=== PATIENT | male | born 1935 | race Caucasian/White ===

== ENCOUNTER 2019-05-28 05:26 | Inpatient (IN) ==
[2019-05-28] MEDS ORDERED: Isovue-370 500 ML BOTTLE IVP ONE (06:03)
[2019-05-28 06:05] LABS: Hematocrit 47.9 % (37.5-50.1); Hemoglobin 16.9 g/dL (12.9-16.9); Mean Corpuscular HGB Conc 35.3 g/dL (31.6-35.5); Mean Corpuscular Hemoglobin 31.6 pg (28.0-33.3); Mean Corpuscular Volume 89.5 fL (83.0-100.0); Mean Platelet Volume 12.6 fL (9.4-12.4); Platelet Count 159 K/mcL (140-400); Red Blood Count 5.35 M/mcL (4.19-5.50); Red Cell Distribution Width 13.6 % (11.5-14.5)
[2019-05-28 06:10] LABS: INR 2.9; Prothrombin Time 33.2 Seconds (9.4-12.1)
[2019-05-28 06:13] LABS: Activated Partial Thrombo Time 42.9 Seconds (26.0-36.0)
[2019-05-28] MEDS ORDERED: niCARdipine 20 MG/200 ML MLS IVC SCH (06:30)
[2019-05-28] MEDS ORDERED: niCARdipine 20 MG in 0.9 % Sodium Chloride 192 ML IVC SCH (06:30)
[2019-05-28] MEDS ORDERED: niCARdipine 20 MG/200 ML MLS IVC ONE (07:17)
[2019-05-28] MEDS ORDERED: Ondansetron 4 MG/2 ML VIAL IVP PRN (08:08)
[2019-05-28] MEDS ORDERED: Naloxone 0.4 MG/ML INJ IVP PRN (08:08)
[2019-05-28] MEDS ORDERED: Dextrose Gel 15 GM/37.5 ML TUBE PO PRN ×3 (08:14→19:45)
[2019-05-28] MEDS ORDERED: *HR* Dextrose 50 % in Water (Syg) 50 ML SYRINGE IVP PRN ×2 (08:14→19:45)
[2019-05-28] MEDS ORDERED: D5% in Water 1,000 ML IVC PRN ×2 (08:14→19:45)
[2019-05-28 08:32] LABS: BUN/Creatinine Ratio 13 (6-26); Blood Urea Nitrogen 11 mg/dL (8-23); Calcium 9.7 mg/dL (8.6-10.3); Carbon Dioxide 30 mEq/L (23-29); Chloride 98 mEq/L (98-107); Glucose 227 mg/dL (70-105); Osmolality,Calculated 291 (280-300); Potassium 4.1 mEq/L (3.5-5.1); Sodium 137 mEq/L (136-145); eGFR For African Americans > 60 (> 60); eGFR For Non-African Americans > 60 (> 60)
[2019-05-28] MEDS: 0.9 % Sodium Chloride 1,000 ML IVC SCH (10:50)
[2019-05-28] MEDS: Aspirin 325 MG TABLET PO SCH (11:35)
[2019-05-28] MEDS: Insulin LISPRO 300 UNITS/3 ML VIAL SQ SCH ×3 (13:27→20:08)
[2019-05-28] MEDS ORDERED: *HR* Warfarin 1 MG TABLET PO ONE (18:00)
[2019-05-28] MEDS ORDERED: Warfarin perPT PO PRN (18:00)
[2019-05-28 20:38] LABS: Folate 12.8 ng/mL (3.0-16.0)
[2019-05-29] MEDS: 0.9 % Sodium Chloride 1,000 ML IVC SCH (00:37)
[2019-05-29 05:03] LABS: INR 2.8
[2019-05-29 05:13] LABS: BUN/Creatinine Ratio 17 (6-26); Blood Urea Nitrogen 13 mg/dL (8-23); Calcium 8.9 mg/dL (8.6-10.3); Carbon Dioxide 24 mEq/L (23-29); Chloride 99 mEq/L (98-107); Chol/HDL Ratio 2.8 (0-4.9); Cholesterol 108 mg/dL (< 200); Glucose 165 mg/dL (70-105); HDL Cholesterol 38 mg/dL (40-59); LDL Cholesterol,Calculated 61 mg/dL (0-99); Osmolality,Calculated 284 (280-300); Potassium 3.8 mEq/L (3.5-5.1); Sodium 135 mEq/L (136-145); Triglycerides 44 mg/dL (< 150); eGFR For African Americans > 60 (> 60); eGFR For Non-African Americans > 60 (> 60)
[2019-05-29] MEDS: Insulin LISPRO 300 UNITS/3 ML VIAL SQ SCH ×4 (09:15→21:05)
[2019-05-29] MEDS: Aspirin 325 MG TABLET PO SCH (09:39)
[2019-05-29 12:01] LABS: Bilirubin,Urine Negative (Negative); Blood,Urine Moderate (Negative); Clarity,Urine Cloudy (Clear); Color,Urine Yellow (Yellow); Glucose,Urine (UA) 500 mg/dL (Normal); Ketones,Urine 15 mg/dL (Negative); Leukocyte Esterase,Urine Large (Negative); Nitrite,Urine Positive (Negative); PH,Urine 6.5 pH Units (5.0-8.0); Protein,Urine 30 mg/dL (Neg-Trace); Specific Gravity,Urine 1.013 (1.010-1.025); Urobilinogen,Urine Normal (Normal)
[2019-05-29 12:03] LABS: Bacteria,Urine Many per hpf (None-Few); Hyaline Casts,Urine None Seen per lpf (None-Few); RBC,Urine 15-30 per hpf (0-3); Squamous Epithelial Cell,Urine None Seen per lpf (None-Few); WBC,Urine 50-100 per hpf (0-3)
[2019-05-29] MEDS: Metoprolol XL (24 HR) Succ 50 MG TAB.ER.24H PO SCH (14:41)
[2019-05-29] MEDS: Lisinopril 20 MG TABLET PO SCH (14:41)
[2019-05-29] MEDS: *HR* Warfarin 4 MG TABLET PO ONE (17:50)
[2019-05-29] MEDS: cefTRIAXone 1,000 MG in Water for inj. (sterile) 10 ML IVP SCH (21:06)
[2019-05-30 07:55] LABS: INR 3.5; Prothrombin Time 39.3 Seconds (9.4-12.1)
[2019-05-30] MEDS: cefTRIAXone 1,000 MG in Water for inj. (sterile) 10 ML IVP SCH (08:27)
[2019-05-30] MEDS: Metoprolol XL (24 HR) Succ 50 MG TAB.ER.24H PO SCH (08:27)
[2019-05-30] MEDS: Lisinopril 20 MG TABLET PO SCH (08:27)
[2019-05-30] MEDS: Insulin LISPRO 300 UNITS/3 ML VIAL SQ SCH ×4 (08:42→21:15)
[2019-05-30] MEDS ORDERED: Aspirin Enteric Coated 81 MG Tablet PO SCH (09:00)
[2019-05-30] MEDS ORDERED: 0.9 % Sodium Chloride 1,000 ML IV ONE (13:05)
[2019-05-30] MEDS ORDERED: *HR* Metoprolol 5 MG/5 ML VIAL IVP ONE (21:51)
[2019-05-31] MEDS ORDERED: *HR* Labetalol 20 MG/4 ML SYRINGE IVP ONE (00:21)
[2019-05-31] MEDS ORDERED: *HR* Metoprolol 5 MG/5 ML VIAL IVP ONE (03:07)
[2019-05-31 03:47] LABS: Basophils % 0.4 %; Eosinophils # 0.1 K/mcL (0.0-0.6); Eosinophils % 1.2 %; Hematocrit 41.2 % (37.5-50.1); Immature Granulocytes % 0.3 % (0-4); Lymphocytes # 0.9 K/mcL (0.6-4.6); Lymphocytes % 8.5 %; Mean Corpuscular HGB Conc 36.2 g/dL (31.6-35.5); Mean Corpuscular Hemoglobin 31.7 pg (28.0-33.3); Mean Corpuscular Volume 87.7 fL (83.0-100.0); Mean Platelet Volume 11.4 fL (9.4-12.4); Monocytes # 1.1 K/mcL (0.0-1.3); Monocytes % 10.1 %; Neutrophils # 8.3 K/mcL (1.6-8.9); Platelet Count 140 K/mcL (140-400); Red Cell Distribution Width 13.4 % (11.5-14.5); Segmented Neutrophils % 79.5 %; White Blood Count 10.5 K/mcL (4.3-11.1)
[2019-05-31 03:48] LABS: Hemoglobin 14.9 g/dL (12.9-16.9)
[2019-05-31 03:53] LABS: INR 2.9; Prothrombin Time 33.3 Seconds (9.4-12.1)
[2019-05-31] MEDS ORDERED: 0.9 % Sodium Chloride 250 ML IVC SCH (04:00)
[2019-05-31 04:02] LABS: BUN/Creatinine Ratio 22 (6-26); Blood Urea Nitrogen 20 mg/dL (8-23); Calcium 8.6 mg/dL (8.6-10.3); Carbon Dioxide 25 mEq/L (23-29); Chloride 99 mEq/L (98-107); Glucose 212 mg/dL (70-105); Magnesium 1.5 mg/dL (1.6-2.6); Osmolality,Calculated 285 (280-300); Potassium 3.7 mEq/L (3.5-5.1); Sodium 133 mEq/L (136-145); eGFR For African Americans > 60 (> 60); eGFR For Non-African Americans > 60 (> 60)
[2019-05-31 06:16] VITALS: BP 168/105
== END 2019-05-31 06:15 | disposition critical access hospital (66) | DRG 68 ==
LOC: 2NNU 05:26 → EMEROOARM 05:26 → SUATTDRO 08:45 → 2NNU 09:00 → 2ANU 05-29 18:48 → 2NNU 05-31 03:59
PROVIDERS: ADMIT Internal Medicine; ATTEND Pharmacist